=== PATIENT | female | born 1930 | race Two or more races ===

== ENCOUNTER 2017-11-13 17:32 | Emergency (ER) | payer MEDICARE, MEDICAID ==
[~2017-11-13] VITALS: Ht 154.9 cm; Wt 65.8 kg
[2017-11-13 18:51] LABS: Basophils # (auto) 0 uL; Basophils % (auto) 0.6 % (0.0-2.0); Eosinophils # (auto) 0.1 uL; Eosinophils % (auto) 1.6 % (0.0-7.0); Hematocrit 43.1 % (36.0-46.0); Hemoglobin 14.8 g/dL (12.2-16.2); Lymphocytes # (auto) 1.9 uL; Lymphocytes % (auto) 32.4 % (10.0-50.0); Mean Corpuscular Hemoglobin 33.2 pg (28.0-32.0); Mean Corpuscular Hgb Conc. 34.4 g/dL (32.0-36.0); Mean Corpuscular Volume 96.5 fL (80.0-100.0); Monocytes # (auto) 0.3 uL; Monocytes % (auto) 5.6 % (0.0-12.0); Neutrophils # (auto) 3.6 uL; Neutrophils % (auto) 59.8 % (37.0-80.0); Nucleated Red Blood Cells % 0.1 %; Platelet Count (auto) 206 10^3/uL (140-450); Red Blood Cells 4.47 10^6/uL (4.0-5.20); Red Cell Distribution Width 13.6 % (11.8-14.3)
[2017-11-13 19:03] LABS: INR 0.98 (0.9-1.15); Partial Thromboplastin Time 27.5 sec (22.64-33.71); Prothrombin Time 10.7 sec (9.37-12.3)
[2017-11-13 19:07] LABS: Chloride 106 mmol/L (98-107); Potassium 3.4 mmol/L (3.5-5.1); Sodium 140 mmol/L (136-145)
[2017-11-13 19:10] LABS: Alanine Aminotransferase 26 U/L (13-56); Albumin 3.1 g/dL (3.4-5.0); Anion Gap 11 (5-15); Aspartate Aminotransferase 28 U/L (15-37); BUN/Creatinine Ratio 13.5; Blood Urea Nitrogen 10 mg/dL (7-18); Calcium 8.4 mg/dL (8.5-10.1); Carbon Dioxide 23 mmol/L (21-32); GFR African American 96 mL/min; GFR Non-African American 79 mL/min; Glucose 199 mg/dL (74-106)
[2017-11-13 19:15] LABS: Alkaline Phosphatase 113 U/L (45-117); Bilirubin, Total 0.4 mg/dL (0.2-1.0); Total Protein 7.7 g/dL (6.4-8.2)
[2017-11-13 23:55] VITALS: BP 154/67
== END 2017-11-13 23:38 | disposition home or self-care (01) ==
LOC: ER 17:38
DX: I10 Essential (primary) hypertension (principal); E11.9 Type 2 diabetes mellitus without complications; Z90.49 Acquired absence of other specified parts of digestive tract; R41.82 Altered mental status, unspecified
CPT/HCPCS: 36415; 70450; 71045; 80053; 82962; 84484; 85025; 85610; 85730; 93005

== ENCOUNTER 2018-07-15 20:43 | Emergency (ER) | payer MEDICARE, MEDICAID ==
[~2018-07-15] VITALS: Ht 157.5 cm; Wt 83.9 kg
[2018-07-15] MEDS ORDERED: GLUCAGON HYDROCHLORIDE (RDNA) 1 MG VIAL ONE (21:11)
[2018-07-15] MEDS ORDERED: GLUCAGON HYDROCHLORIDE (RDNA) 1 MG VIAL IM ONE (22:45)
[2018-07-15 22:58] VITALS: BP 149/111
== END 2018-07-15 23:05 | disposition home or self-care (01) ==
LOC: ER 20:43
DX: T18.128A Food in esophagus causing other injury, initial encounter (principal); E11.9 Type 2 diabetes mellitus without complications; I10 Essential (primary) hypertension; F03.90 Unspecified dementia, unspecified severity, without behavioral disturbance, psychotic disturbance, mood disturbance, and anxiety; F41.9 Anxiety disorder, unspecified; F32.9 Major depressive disorder, single episode, unspecified; Z90.49 Acquired absence of other specified parts of digestive tract; W22.8XXA Striking against or struck by other objects, initial encounter; Y93.89 Activity, other specified; Y92.89 Other specified places as the place of occurrence of the external cause; Y99.8 Other external cause status
CPT/HCPCS: 70490; 71250; 96372; 99284; J1610

== ENCOUNTER 2021-06-04 12:38 | Inpatient (IN) | payer MEDICARE, MEDICAID ==
[~2021-06-04] VITALS: Ht 154.9 cm; Wt 62.4 kg
[2021-06-04] MEDS ORDERED: SODIUM CHLORIDE 0.9% 500 ML IV ONE (13:30)
[2021-06-04 14:47] LABS: Basophils # (auto) 0.1 10 ^3/uL (0-0.2); Basophils % (auto) 0.4 % (0.0-2.0); Eosinophils # (auto) 0 10 ^3/uL (0-0.8); Eosinophils % (auto) 0.2 % (0.0-7.0); Hematocrit 36.4 % (36.0-46.0); Hemoglobin 12.2 g/dL (12.2-16.2); Lymphocytes # (auto) 1.7 10 ^3/uL (0.4-5.4); Lymphocytes % (auto) 12.7 % (10.0-50.0); Mean Corpuscular Hemoglobin 31.6 pg (28.0-32.0); Mean Corpuscular Hgb Conc. 33.6 g/dL (32.0-36.0); Monocytes # (auto) 0.7 10 ^3/uL (0-1.3); Monocytes % (auto) 5.3 % (0.0-12.0); Neutrophils # (auto) 11.2 10 ^3/uL (1.6-8.6); Neutrophils % (auto) 81.4 % (37.0-80.0); Red Blood Cells 3.87 10^6/uL (4.0-5.20); Red Cell Distribution Width 13.3 % (11.8-14.3); White Blood Cell 13.7 10^3/uL (4.4-10.8)
[2021-06-04 15:03] LABS: INR 1.06 (0.9-1.15); Partial Thromboplastin Time 28.6 sec (23.6-33.0)
[2021-06-04 15:09] LABS: Albumin 2.9 g/dL (3.4-5.0); Calcium 8.8 mg/dL (8.5-10.1); Potassium 3.5 mmol/L (3.5-5.1)
[2021-06-04 15:15] LABS: BUN/Creatinine Ratio 32.7; Bilirubin, Total 0.4 mg/dL (0.2-1.0)
[2021-06-04] MEDS ORDERED: VANCOMYCIN 1GM/250ML 250 ML IV ONE (16:00)
[2021-06-04] MEDS ORDERED: amLODIPine BESYLATE 5 MG TAB PO ONE (18:00)
[2021-06-05] MEDS ORDERED: PIPERACILLIN-TAZOB 3.375GM 100 ML IV ONE (02:00)
[2021-06-05] MEDS ORDERED: CLINDAMYCIN 600MG IV 50 ML IV ONE (02:00)
[2021-06-05] MEDS ORDERED: IOHEXOL 350 MG/ML 100ML IJ ONE (09:09)
[2021-06-05] MEDS ORDERED: VANCOMYCIN PER PHARMACY 0 MG IV SCH (09:30)
[2021-06-05] MEDS ORDERED: MEROPENEM 1GM IVPB 100 ML IV ONE (09:30)
[2021-06-05] MEDS ORDERED: ONDANSETRON HCL 4 MG/2 ML VIAL IV ONE (09:45)
[2021-06-05] MEDS ORDERED: HYDROmorphone HCL 2 MG/ML VL IV ONE (09:45)
[2021-06-05] MEDS ORDERED: ONDANSETRON HCL 4 MG/2 ML VIAL IV PRN (10:30)
[2021-06-05] MEDS ORDERED: MORPHINE SULFATE INJECTION 2 MG/ML SYRG IV PRN (10:30)
[2021-06-05] MEDS ORDERED: SODIUM CHLORIDE 0.9% 1,000 ML IV SCH (10:30)
[2021-06-05] MEDS ORDERED: NITROGLYCERIN 0.4 MG SL TAB SL PRN (10:30)
[2021-06-05] MEDS: VANCOMYCIN 1GM/250ML 250 ML IV SCH (17:19)
[2021-06-05 22:00] VITALS: BP 156/59
[2021-06-05] MEDS: MEROPENEM 1GM IVPB 100 ML IV SCH (22:40)
[2021-06-05] MEDS: HYDROcodone-ACET 5/325MG TAB PO PRN (22:44)
[2021-06-06 05:00] VITALS: BP 156/70
[2021-06-06 06:26] LABS: Basophils # (auto) 0 10 ^3/uL (0-0.2); Basophils % (auto) 0.4 % (0.0-2.0); Eosinophils # (auto) 0 10 ^3/uL (0-0.8); Eosinophils % (auto) 0.2 % (0.0-7.0); Hematocrit 33.8 % (36.0-46.0); Hemoglobin 11.8 g/dL (12.2-16.2); Lymphocytes # (auto) 1.7 10 ^3/uL (0.4-5.4); Lymphocytes % (auto) 13.1 % (10.0-50.0); Mean Corpuscular Hemoglobin 32.5 pg (28.0-32.0); Mean Corpuscular Hgb Conc. 34.7 g/dL (32.0-36.0); Mean Corpuscular Volume 93.6 fL (80.0-100.0); Monocytes # (auto) 0.8 10 ^3/uL (0-1.3); Monocytes % (auto) 6.1 % (0.0-12.0); Neutrophils # (auto) 10.6 10 ^3/uL (1.6-8.6); Neutrophils % (auto) 80.2 % (37.0-80.0); Nucleated Red Blood Cells % 0.1 %; Red Blood Cells 3.62 10^6/uL (4.0-5.20); Red Cell Distribution Width 13.1 % (11.8-14.3); White Blood Cell 13.2 10^3/uL (4.4-10.8)
[2021-06-06 06:38] LABS: Albumin 2.6 g/dL (3.4-5.0); Calcium 8.5 mg/dL (8.5-10.1)
[2021-06-06 06:42] LABS: BUN/Creatinine Ratio 31.3; Bilirubin, Total 0.5 mg/dL (0.2-1.0); Total Protein 6.4 g/dL (6.4-8.2)
[2021-06-06] MEDS ORDERED: LORA0.5T20 PO (08:03)
[2021-06-06] MEDS ORDERED: MORI500C PO (08:03)
[2021-06-06] MEDS ORDERED: CHOL20009 PO (08:03)
[2021-06-06] MEDS ORDERED: OMEG1CAP68 PO (08:03)
[2021-06-06] MEDS ORDERED: FURO40TA4 PO (08:03)
[2021-06-06] MEDS ORDERED: BENA20TA14 PO (08:03)
[2021-06-06] MEDS ORDERED: ACET-1158 PO (08:03)
[2021-06-06] MEDS ORDERED: AMLO-489 PO (08:03)
[2021-06-06] MEDS ORDERED: GABA300C10 PO (08:03)
[2021-06-06] MEDS ORDERED: TEMA15CA PO (08:03)
[2021-06-06] MEDS ORDERED: FURO20TA3 PO (08:03)
[2021-06-06] MEDS ORDERED: SERT-376 PO (08:03)
[2021-06-06] MEDS ORDERED: ASPI-498 OR (08:03)
[2021-06-06] MEDS ORDERED: MULT1CAP27 PO (08:03)
[2021-06-06] MEDS ORDERED: ERYTPOW19 XX (08:03)
[2021-06-06] MEDS ORDERED: GLUC-163 PO (08:03)
[2021-06-06] MEDS ORDERED: POLYSOL7 OP (08:03)
[2021-06-06 09:00] VITALS: BP 154/66
[2021-06-06] MEDS: MEROPENEM 1GM IVPB 100 ML IV SCH ×2 (10:11→23:08)
[2021-06-06] MEDS: D5W/SOD CHLO 0.9% 1,000 ML IV SCH (10:45)
[2021-06-06] MEDS ORDERED: VANCOMYCIN 1GM/250ML 250 ML IV SCH ×2 (11:00→23:00)
[2021-06-06] MEDS: MORPHINE SULFATE 4 MG/ML SYR/VIAL IV PRN (11:02)
[2021-06-06 13:00] VITALS: BP 151/65
[2021-06-06] MEDS ORDERED: ceFAZolin 1GM VL ONE (13:41)
[2021-06-06] MEDS ORDERED: ROPIVACAINE 0.5% (5MG/ML) 20ML AMPULE IJ ONE (13:42)
[2021-06-06] MEDS ORDERED: MIDAZOLAM HCL 2MG/2ML 2ml VIAL (1mg/ml) ONE (13:48)
[2021-06-06] MEDS ORDERED: fentaNYL CITRATE 100 MCG/2 ML VL ONE (13:48)
[2021-06-06] MEDS ORDERED: ceFAZolin 1GM/50ML 100 ML IV ONE (13:51)
[2021-06-06] MEDS ORDERED: ONDANSETRON HCL 4 MG/2 ML VIAL ONE (13:57)
[2021-06-06] MEDS ORDERED: LIDOCAINE 2% (LOCAL ANESTH.) PF 5ml SDV ONE (13:57)
[2021-06-06] MEDS ORDERED: NEOMYCIN-BACITRACIN-POLYM 15GM TOP OINT TOP ONE (14:32)
[2021-06-06] MEDS ORDERED: PROPOFOL 10 MG/ML 20 ML IV ONE (14:35)
[2021-06-06] MEDS ORDERED: ONDANSETRON HCL 4 MG/2 ML VIAL IV PRN (14:45)
[2021-06-06] MEDS ORDERED: HYDROmorphone HCL 2 MG/ML VL IV PRN (14:45)
[2021-06-06] MEDS: POTASSIUM CHL 20MEQ/100ML 100 ML IV SCH ×2 (16:05→19:40)
[2021-06-06 16:57] VITALS: BP 154/74
[2021-06-06] MEDS: VANCOMYCIN 1GM/250ML 250 ML IV SCH ×2 (17:00→18:04)
[2021-06-06] MEDS ORDERED: POTASSIUM CHL 20MEQ/100ML 100 ML IV SCH (19:45)
[2021-06-06] MEDS: HYDROcodone-ACET 5/325MG TAB PO PRN (19:57)
[2021-06-06] MEDS ORDERED: MEROPENEM 1GM IVPB 100 ML IV SCH (22:00)
[2021-06-06 22:28] VITALS: BP 157/65
[2021-06-07] MEDS: VANCOMYCIN 1GM/250ML 250 ML IV SCH (01:50)
[2021-06-07 05:37] VITALS: BP 153/68
[2021-06-07 06:35] LABS: Basophils # (auto) 0 10 ^3/uL (0-0.2); Basophils % (auto) 0.3 % (0.0-2.0); Eosinophils # (auto) 0 10 ^3/uL (0-0.8); Eosinophils % (auto) 0.1 % (0.0-7.0); Hematocrit 33.7 % (36.0-46.0); Hemoglobin 11.7 g/dL (12.2-16.2); Lymphocytes # (auto) 2.1 10 ^3/uL (0.4-5.4); Lymphocytes % (auto) 18.8 % (10.0-50.0); Mean Corpuscular Hemoglobin 32.2 pg (28.0-32.0); Mean Corpuscular Hgb Conc. 34.8 g/dL (32.0-36.0); Mean Corpuscular Volume 92.5 fL (80.0-100.0); Monocytes # (auto) 0.9 10 ^3/uL (0-1.3); Monocytes % (auto) 7.9 % (0.0-12.0); Neutrophils # (auto) 8.2 10 ^3/uL (1.6-8.6); Neutrophils % (auto) 72.9 % (37.0-80.0); Nucleated Red Blood Cells % 0.1 %; Red Blood Cells 3.64 10^6/uL (4.0-5.20); Red Cell Distribution Width 13.3 % (11.8-14.3); White Blood Cell 11.3 10^3/uL (4.4-10.8)
[2021-06-07 06:49] LABS: Calcium 8.1 mg/dL (8.5-10.1)
[2021-06-07 09:00] VITALS: BP 154/69
[2021-06-07] MEDS: D5W/SOD CHLO 0.9% 1,000 ML IV SCH ×2 (10:45→14:09)
[2021-06-07] MEDS: MEROPENEM 1GM IVPB 100 ML IV SCH ×2 (10:49→23:08)
[2021-06-07 12:38] VITALS: BP 151/69
[2021-06-07 17:04] VITALS: BP 155/75
[2021-06-07] MEDS: MORPHINE SULFATE 4 MG/ML SYR/VIAL IV PRN ×2 (17:05→22:29)
[2021-06-07] MEDS: hydrALAZINE HCL 20 MG/ML VL IV PRN (18:28)
[2021-06-07] MEDS: HYDROcodone-ACET 5/325MG TAB PO PRN (19:57)
[2021-06-07 22:00] VITALS: BP 149/60
[2021-06-08] MEDS: VANCOMYCIN 1GM/250ML 250 ML IV SCH (02:20)
[2021-06-08] MEDS: MORPHINE SULFATE 4 MG/ML SYR/VIAL IV PRN ×4 (02:21→21:50)
[2021-06-08 05:00] VITALS: BP 170/67
[2021-06-08 05:56] LABS: Basophils # (auto) 0 10 ^3/uL (0-0.2); Basophils % (auto) 0.2 % (0.0-2.0); Eosinophils # (auto) 0 10 ^3/uL (0-0.8); Eosinophils % (auto) 0.1 % (0.0-7.0); Hematocrit 34.6 % (36.0-46.0); Hemoglobin 11.7 g/dL (12.2-16.2); Lymphocytes # (auto) 1.6 10 ^3/uL (0.4-5.4); Lymphocytes % (auto) 12.9 % (10.0-50.0); Mean Corpuscular Hemoglobin 31.6 pg (28.0-32.0); Mean Corpuscular Hgb Conc. 33.7 g/dL (32.0-36.0); Mean Corpuscular Volume 93.8 fL (80.0-100.0); Monocytes # (auto) 0.9 10 ^3/uL (0-1.3); Monocytes % (auto) 7.4 % (0.0-12.0); Neutrophils # (auto) 9.9 10 ^3/uL (1.6-8.6); Neutrophils % (auto) 79.4 % (37.0-80.0); Nucleated Red Blood Cells % 0.1 %; Red Blood Cells 3.69 10^6/uL (4.0-5.20); Red Cell Distribution Width 13.2 % (11.8-14.3); White Blood Cell 12.5 10^3/uL (4.4-10.8)
[2021-06-08 06:10] LABS: BUN/Creatinine Ratio 33.3; Calcium 8.2 mg/dL (8.5-10.1)
[2021-06-08] MEDS: hydrALAZINE HCL 20 MG/ML VL IV PRN ×2 (06:34→16:53)
[2021-06-08 06:44] LABS: Potassium 2.7 mmol/L (3.5-5.1)
[2021-06-08 08:45] VITALS: BP 136/58
[2021-06-08] MEDS ORDERED: POTASSIUM EFFERVESENT TAB 25 MEQ PO SCH (10:00)
[2021-06-08] MEDS: MEROPENEM 1GM IVPB 100 ML IV SCH ×2 (10:03→23:43)
[2021-06-08] MEDS ORDERED: POTASSIUM CHLORIDE 60 MEQ, LIDOCAINE 1% (LOCAL ANESTH.) 6 ML in SODIUM CHL 0.9% 500 ML IV ONE (11:45)
[2021-06-08] MEDS: D5W/SOD CHLO 0.9% 1,000 ML IV SCH (12:40)
[2021-06-08 13:16] VITALS: BP 127/60
[2021-06-08 17:00] VITALS: BP 167/66
[2021-06-08] MEDS ORDERED: VANCOMYCIN 1GM/250ML 250 ML IV SCH (20:00)
[2021-06-08 22:00] VITALS: BP 125/59
[2021-06-09] MEDS: MORPHINE SULFATE 4 MG/ML SYR/VIAL IV PRN ×2 (01:42→21:59)
[2021-06-09 05:00] VITALS: BP 140/66
[2021-06-09 05:30] LABS: Basophils # (auto) 0 10 ^3/uL (0-0.2); Basophils % (auto) 0.3 % (0.0-2.0); Eosinophils # (auto) 0 10 ^3/uL (0-0.8); Eosinophils % (auto) 0.2 % (0.0-7.0); Hematocrit 31.7 % (36.0-46.0); Hemoglobin 11.1 g/dL (12.2-16.2); Lymphocytes # (auto) 1.5 10 ^3/uL (0.4-5.4); Mean Corpuscular Hemoglobin 32.2 pg (28.0-32.0); Mean Corpuscular Hgb Conc. 35.1 g/dL (32.0-36.0); Mean Corpuscular Volume 91.8 fL (80.0-100.0); Monocytes # (auto) 0.8 10 ^3/uL (0-1.3); Monocytes % (auto) 7.9 % (0.0-12.0); Neutrophils # (auto) 8.3 10 ^3/uL (1.6-8.6); Neutrophils % (auto) 77.6 % (37.0-80.0); Red Blood Cells 3.46 10^6/uL (4.0-5.20); Red Cell Distribution Width 13.3 % (11.8-14.3); White Blood Cell 10.7 10^3/uL (4.4-10.8)
[2021-06-09 05:51] LABS: Potassium 3.3 mmol/L (3.5-5.1)
[2021-06-09 09:00] VITALS: BP 165/73
[2021-06-09] MEDS: MEROPENEM 1GM IVPB 100 ML IV SCH (10:09)
[2021-06-09] MEDS: hydrALAZINE HCL 20 MG/ML VL IV PRN (10:09)
[2021-06-09] MEDS ORDERED: POTASSIUM CHLORIDE 40 MEQ, LIDOCAINE 1% (LOCAL ANESTH.) 4 ML in SODIUM CHL 0.9% 250 ML IV ONE (10:45)
[2021-06-09] MEDS: D5W/SOD CHLO 0.9% 1,000 ML IV SCH (10:45)
[2021-06-09] MEDS ORDERED: CEFTRIAXONE SODIUM 2 GM in D5W 5% 50 ML IV ONE (12:30)
[2021-06-09 13:00] VITALS: BP 134/65
[2021-06-09] MEDS ORDERED: cefTRIAXone 1GM/50ML D5W 50 ML IV ONE (13:00)
[2021-06-09] MEDS ORDERED: ANGIOMAX 250 MG VIAL IV ONE (13:08)
[2021-06-09] MEDS ORDERED: SODIUM CHL 0.9% 50 ML ONE (13:08)
[2021-06-09] MEDS ORDERED: LIDOCAINE 2%HCL (LOCAL ANESTH.) INJ 20ML MDV ONE (13:08)
[2021-06-09] MEDS ORDERED: MIDAZOLAM HCL 2MG/2ML 2ml VIAL (1mg/ml) ONE (13:08)
[2021-06-09] MEDS ORDERED: fentaNYL CITRATE 100 MCG/2 ML VL ONE (13:08)
[2021-06-09] MEDS ORDERED: CLOPIDOGREL 300 MG TAB ONE (15:50)
[2021-06-09 17:00] VITALS: BP 137/58
[2021-06-09 22:00] VITALS: BP 139/74
[2021-06-10 06:05] VITALS: BP 130/70
[2021-06-10 06:12] LABS: Basophils # (auto) 0 10 ^3/uL (0-0.2); Basophils % (auto) 0.3 % (0.0-2.0); Eosinophils # (auto) 0 10 ^3/uL (0-0.8); Eosinophils % (auto) 0.4 % (0.0-7.0); Hematocrit 29.6 % (36.0-46.0); Hemoglobin 10.4 g/dL (12.2-16.2); Lymphocytes # (auto) 1.4 10 ^3/uL (0.4-5.4); Mean Corpuscular Hemoglobin 32.5 pg (28.0-32.0); Mean Corpuscular Hgb Conc. 35.2 g/dL (32.0-36.0); Mean Corpuscular Volume 92.3 fL (80.0-100.0); Monocytes # (auto) 0.7 10 ^3/uL (0-1.3); Monocytes % (auto) 6.9 % (0.0-12.0); Neutrophils # (auto) 7.4 10 ^3/uL (1.6-8.6); Neutrophils % (auto) 77.4 % (37.0-80.0); Red Blood Cells 3.21 10^6/uL (4.0-5.20); Red Cell Distribution Width 13.2 % (11.8-14.3); White Blood Cell 9.6 10^3/uL (4.4-10.8)
[2021-06-10 06:26] LABS: Calcium 7.9 mg/dL (8.5-10.1); Potassium 3.4 mmol/L (3.5-5.1)
[2021-06-10 09:00] VITALS: BP 153/62
[2021-06-10] MEDS: CLOPIDOGREL BISULFATE 75 MG TAB PO SCH (09:14)
[2021-06-10] MEDS: ASPirin-EC 81 mg tab PO SCH (09:15)
[2021-06-10] MEDS: cefTRIAXone 1GM/50ML D5W 50 ML IV SCH (09:15)
[2021-06-10] MEDS ORDERED: CEFTRIAXONE SODIUM 2 GM in D5W 5% 50 ML IV SCH (10:00)
[2021-06-10] MEDS: D5W/SOD CHLO 0.9% 1,000 ML IV SCH (10:45)
[2021-06-10] MEDS: hydrALAZINE HCL 20 MG/ML VL IV PRN ×2 (11:11→16:21)
[2021-06-10] MEDS: MORPHINE SULFATE 4 MG/ML SYR/VIAL IV PRN ×2 (11:13→21:40)
[2021-06-10] MEDS: BACITRACIN TOP OINT 1 UD PKG TOP SCH (12:00)
[2021-06-10 13:00] VITALS: BP 130/64
[2021-06-10 17:00] VITALS: BP 154/69
[2021-06-10 22:00] VITALS: BP 145/58
[2021-06-11 05:00] VITALS: BP 153/75
[2021-06-11 05:59] LABS: Basophils # (auto) 0 10 ^3/uL (0-0.2); Basophils % (auto) 0.3 % (0.0-2.0); Eosinophils # (auto) 0.1 10 ^3/uL (0-0.8); Eosinophils % (auto) 0.6 % (0.0-7.0); Hematocrit 31.8 % (36.0-46.0); Hemoglobin 10.9 g/dL (12.2-16.2); Lymphocytes # (auto) 1.5 10 ^3/uL (0.4-5.4); Lymphocytes % (auto) 14.4 % (10.0-50.0); Mean Corpuscular Hemoglobin 31.9 pg (28.0-32.0); Mean Corpuscular Hgb Conc. 34.4 g/dL (32.0-36.0); Mean Corpuscular Volume 92.9 fL (80.0-100.0); Monocytes # (auto) 0.6 10 ^3/uL (0-1.3); Monocytes % (auto) 6.1 % (0.0-12.0); Neutrophils % (auto) 78.6 % (37.0-80.0); Red Blood Cells 3.42 10^6/uL (4.0-5.20); Red Cell Distribution Width 13.5 % (11.8-14.3); White Blood Cell 10.1 10^3/uL (4.4-10.8)
[2021-06-11] MEDS: D5W/SOD CHLO 0.9% 1,000 ML IV SCH ×2 (06:09→14:11)
[2021-06-11 06:35] LABS: Calcium 7.8 mg/dL (8.5-10.1)
[2021-06-11 09:00] VITALS: BP 160/75
[2021-06-11] MEDS: BACITRACIN TOP OINT 1 UD PKG TOP SCH (12:20)
[2021-06-11 13:00] VITALS: BP 161/70
[2021-06-11] MEDS: CLOPIDOGREL BISULFATE 75 MG TAB PO SCH (14:10)
[2021-06-11] MEDS: ASPirin-EC 81 mg tab PO SCH (14:10)
[2021-06-11] MEDS: cefTRIAXone 1GM/50ML D5W 50 ML IV SCH (14:11)
[2021-06-11] MEDS: hydrALAZINE HCL 20 MG/ML VL IV PRN (14:24)
[2021-06-11 17:00] VITALS: BP 108/53
[2021-06-11] MEDS: HYDROcodone-ACET 5/325MG TAB PO PRN ×2 (17:10→21:22)
[2021-06-11] MEDS: MORPHINE SULFATE 4 MG/ML SYR/VIAL IV PRN (19:56)
[2021-06-11] MEDS: POTASSIUM CHL 20MEQ/100ML 100 ML IV SCH (21:22)
[2021-06-11] MEDS: D5W/SOD CHL 0.9%/KCL 40MEQ 1,000 ML IV SCH (21:22)
[2021-06-11 22:00] VITALS: BP 125/55
[2021-06-12] MEDS: POTASSIUM CHL 20MEQ/100ML 100 ML IV SCH (02:39)
[2021-06-12 05:00] VITALS: BP 154/71
[2021-06-12] MEDS: HYDROcodone-ACET 5/325MG TAB PO PRN (07:00)
[2021-06-12 07:12] LABS: Basophils # (auto) 0 10 ^3/uL (0-0.2); Basophils % (auto) 0.3 % (0.0-2.0); Eosinophils # (auto) 0.1 10 ^3/uL (0-0.8); Eosinophils % (auto) 1.1 % (0.0-7.0); Hematocrit 32.9 % (36.0-46.0); Hemoglobin 11.1 g/dL (12.2-16.2); Lymphocytes # (auto) 1.6 10 ^3/uL (0.4-5.4); Lymphocytes % (auto) 16.1 % (10.0-50.0); Mean Corpuscular Hemoglobin 32.4 pg (28.0-32.0); Mean Corpuscular Hgb Conc. 33.6 g/dL (32.0-36.0); Mean Corpuscular Volume 96.4 fL (80.0-100.0); Monocytes # (auto) 0.7 10 ^3/uL (0-1.3); Monocytes % (auto) 6.6 % (0.0-12.0); Neutrophils # (auto) 7.6 10 ^3/uL (1.6-8.6); Neutrophils % (auto) 75.9 % (37.0-80.0); Red Blood Cells 3.42 10^6/uL (4.0-5.20); Red Cell Distribution Width 13.7 % (11.8-14.3); White Blood Cell 10.1 10^3/uL (4.4-10.8)
[2021-06-12 07:21] LABS: BUN/Creatinine Ratio 43.5; Calcium 8.3 mg/dL (8.5-10.1); Magnesium 2.8 mg/dL (1.6-2.6); Phosphorus 2.6 mg/dL (2.5-4.90)
[2021-06-12 07:30] VITALS: BP 150/79
[2021-06-12] MEDS: CLOPIDOGREL BISULFATE 75 MG TAB PO SCH (10:00)
[2021-06-12] MEDS: ASPirin-EC 81 mg tab PO SCH (10:00)
[2021-06-12] MEDS: cefTRIAXone 1GM/50ML D5W 50 ML IV SCH (10:00)
[2021-06-12] MEDS: BACITRACIN TOP OINT 1 UD PKG TOP SCH (10:01)
[2021-06-12 12:00] VITALS: BP 146/66
[2021-06-12 16:30] VITALS: BP 149/70
[2021-06-12] MEDS: LACTULOSE 20Gm/30ML SOLN PO SCH ×2 (18:04→19:58)
[2021-06-12] MEDS: D5W/SOD CHL 0.9%/KCL 40MEQ 1,000 ML IV SCH (18:11)
[2021-06-12] MEDS: MORPHINE SULFATE 4 MG/ML SYR/VIAL IV PRN (20:02)
[2021-06-12 22:00] VITALS: BP 160/78
[2021-06-13] MEDS: hydrALAZINE HCL 20 MG/ML VL IV PRN ×2 (00:20→09:20)
[2021-06-13] MEDS: HYDROcodone-ACET 5/325MG TAB PO PRN (00:20)
[2021-06-13 01:10] VITALS: BP 111/54
[2021-06-13 05:00] VITALS: BP 151/64
[2021-06-13] MEDS: MORPHINE SULFATE 4 MG/ML SYR/VIAL IV PRN ×2 (05:26→14:13)
[2021-06-13 06:47] LABS: Basophils # (auto) 0 10 ^3/uL (0-0.2); Basophils % (auto) 0.4 % (0.0-2.0); Eosinophils # (auto) 0.1 10 ^3/uL (0-0.8); Eosinophils % (auto) 0.5 % (0.0-7.0); Hematocrit 31.3 % (36.0-46.0); Hemoglobin 10.8 g/dL (12.2-16.2); Lymphocytes # (auto) 1.2 10 ^3/uL (0.4-5.4); Lymphocytes % (auto) 11.2 % (10.0-50.0); Mean Corpuscular Hgb Conc. 34.5 g/dL (32.0-36.0); Mean Corpuscular Volume 92.8 fL (80.0-100.0); Monocytes # (auto) 0.6 10 ^3/uL (0-1.3); Monocytes % (auto) 5.9 % (0.0-12.0); Neutrophils # (auto) 9.1 10 ^3/uL (1.6-8.6); Red Blood Cells 3.38 10^6/uL (4.0-5.20); Red Cell Distribution Width 13.8 % (11.8-14.3); White Blood Cell 11.1 10^3/uL (4.4-10.8)
[2021-06-13 07:36] LABS: Potassium 3.7 mmol/L (3.5-5.1)
[2021-06-13 07:45] LABS: Calcium 7.9 mg/dL (8.5-10.1)
[2021-06-13 09:00] VITALS: BP 159/69
[2021-06-13] MEDS: cefTRIAXone 1GM/50ML D5W 50 ML IV SCH (09:18)
[2021-06-13] MEDS: LACTULOSE 20Gm/30ML SOLN PO SCH (09:18)
[2021-06-13] MEDS: ASPirin-EC 81 mg tab PO SCH (09:19)
[2021-06-13] MEDS: CLOPIDOGREL BISULFATE 75 MG TAB PO SCH (09:19)
[2021-06-13] MEDS: BACITRACIN TOP OINT 1 UD PKG TOP SCH (09:19)
[2021-06-13 13:00] VITALS: BP 126/55
[2021-06-13 17:00] VITALS: BP 133/66
[2021-06-13 22:26] VITALS: BP 140/72
[2021-06-14] MEDS: LACTULOSE 20Gm/30ML SOLN PO SCH ×3 (00:09→21:23)
[2021-06-14 05:11] LABS: Basophils # (auto) 0.1 10 ^3/uL (0-0.2); Basophils % (auto) 0.5 % (0.0-2.0); Eosinophils # (auto) 0.1 10 ^3/uL (0-0.8); Eosinophils % (auto) 0.6 % (0.0-7.0); Hematocrit 33.7 % (36.0-46.0); Hemoglobin 11.5 g/dL (12.2-16.2); Lymphocytes # (auto) 1.1 10 ^3/uL (0.4-5.4); Lymphocytes % (auto) 9.5 % (10.0-50.0); Mean Corpuscular Hemoglobin 31.9 pg (28.0-32.0); Mean Corpuscular Hgb Conc. 34.1 g/dL (32.0-36.0); Mean Corpuscular Volume 93.6 fL (80.0-100.0); Monocytes # (auto) 0.6 10 ^3/uL (0-1.3); Monocytes % (auto) 4.9 % (0.0-12.0); Neutrophils # (auto) 9.5 10 ^3/uL (1.6-8.6); Neutrophils % (auto) 84.5 % (37.0-80.0); Nucleated Red Blood Cells % 0.1 %; Red Cell Distribution Width 14.1 % (11.8-14.3); White Blood Cell 11.2 10^3/uL (4.4-10.8)
[2021-06-14 05:17] VITALS: BP 135/62
[2021-06-14 09:00] VITALS: BP 152/74
[2021-06-14] MEDS: cefTRIAXone 1GM/50ML D5W 50 ML IV SCH (10:08)
[2021-06-14] MEDS: ASPirin-EC 81 mg tab PO SCH (10:09)
[2021-06-14] MEDS: CLOPIDOGREL BISULFATE 75 MG TAB PO SCH (10:10)
[2021-06-14] MEDS: BACITRACIN TOP OINT 1 UD PKG TOP SCH (10:12)
[2021-06-14 13:00] VITALS: BP 161/78
[2021-06-14] MEDS: hydrALAZINE HCL 20 MG/ML VL IV PRN (14:37)
[2021-06-14 17:00] VITALS: BP 148/73
[2021-06-14] MEDS: HYDROcodone-ACET 5/325MG TAB PO PRN (20:52)
[2021-06-14 22:00] VITALS: BP 118/56
[2021-06-15 05:00] VITALS: BP 175/81
[2021-06-15] MEDS: hydrALAZINE HCL 20 MG/ML VL IV PRN ×2 (05:20→17:00)
[2021-06-15 05:56] LABS: Basophils # (auto) 0 10 ^3/uL (0-0.2); Basophils % (auto) 0.4 % (0.0-2.0); Eosinophils # (auto) 0 10 ^3/uL (0-0.8); Eosinophils % (auto) 0.4 % (0.0-7.0); Hematocrit 31.6 % (36.0-46.0); Hemoglobin 10.9 g/dL (12.2-16.2); Lymphocytes # (auto) 1.1 10 ^3/uL (0.4-5.4); Mean Corpuscular Hemoglobin 31.8 pg (28.0-32.0); Mean Corpuscular Hgb Conc. 34.3 g/dL (32.0-36.0); Mean Corpuscular Volume 92.7 fL (80.0-100.0); Monocytes # (auto) 0.5 10 ^3/uL (0-1.3); Monocytes % (auto) 5.6 % (0.0-12.0); Neutrophils # (auto) 7.7 10 ^3/uL (1.6-8.6); Neutrophils % (auto) 81.6 % (37.0-80.0); Nucleated Red Blood Cells % 0.1 %; Red Blood Cells 3.41 10^6/uL (4.0-5.20); Red Cell Distribution Width 13.6 % (11.8-14.3); White Blood Cell 9.4 10^3/uL (4.4-10.8)
[2021-06-15] MEDS: cefTRIAXone 1GM/50ML D5W 50 ML IV SCH (08:34)
[2021-06-15 09:00] VITALS: BP 161/71
[2021-06-15] MEDS: BACITRACIN TOP OINT 1 UD PKG TOP SCH (10:21)
[2021-06-15] MEDS: CLOPIDOGREL BISULFATE 75 MG TAB PO SCH (10:21)
[2021-06-15] MEDS: LACTULOSE 20Gm/30ML SOLN PO SCH ×2 (10:21→21:31)
[2021-06-15] MEDS: ASPirin-EC 81 mg tab PO SCH (10:21)
[2021-06-15 13:00] VITALS: BP 152/71
[2021-06-15 17:00] VITALS: BP 162/74
[2021-06-15 22:00] VITALS: BP 139/67
[2021-06-15] MEDS: MORPHINE SULFATE 4 MG/ML SYR/VIAL IV PRN (23:15)
[2021-06-16 05:00] VITALS: BP 156/81
[2021-06-16] MEDS: hydrALAZINE HCL 20 MG/ML VL IV PRN ×2 (05:57→12:59)
[2021-06-16 06:28] LABS: Basophils # (auto) 0.1 10 ^3/uL (0-0.2); Basophils % (auto) 0.5 % (0.0-2.0); Eosinophils # (auto) 0.1 10 ^3/uL (0-0.8); Eosinophils % (auto) 0.5 % (0.0-7.0); Hemoglobin 12.3 g/dL (12.2-16.2); Lymphocytes # (auto) 1.7 10 ^3/uL (0.4-5.4); Mean Corpuscular Hemoglobin 31.7 pg (28.0-32.0); Mean Corpuscular Hgb Conc. 33.1 g/dL (32.0-36.0); Mean Corpuscular Volume 95.8 fL (80.0-100.0); Monocytes # (auto) 0.8 10 ^3/uL (0-1.3); Monocytes % (auto) 7.4 % (0.0-12.0); Neutrophils % (auto) 75.6 % (37.0-80.0); Nucleated Red Blood Cells % 0.1 %; Red Blood Cells 3.86 10^6/uL (4.0-5.20); Red Cell Distribution Width 14.4 % (11.8-14.3); White Blood Cell 10.5 10^3/uL (4.4-10.8)
[2021-06-16 08:41] VITALS: BP 144/58
[2021-06-16] MEDS: ASPirin-EC 81 mg tab PO SCH (10:20)
[2021-06-16] MEDS: cefTRIAXone 1GM/50ML D5W 50 ML IV SCH (10:20)
[2021-06-16] MEDS: LACTULOSE 20Gm/30ML SOLN PO SCH (10:20)
[2021-06-16] MEDS: CLOPIDOGREL BISULFATE 75 MG TAB PO SCH (10:21)
[2021-06-16] MEDS: BACITRACIN TOP OINT 1 UD PKG TOP SCH (10:21)
[2021-06-16 12:56] VITALS: BP 165/60
[2021-06-16 13:31] VITALS: BP 140/68
[2021-06-16 15:15] VITALS: BP 140/68
== END 2021-06-16 16:00 | disposition hospice, home (50) | DRG 853 ==
LOC: ER 12:38 → TELE 06-05 10:20 → TELE-CENTR 06-05 20:32
PROVIDERS: ADMIT Internal Medicine Nephrology; ATTEND Internal Medicine
PROC: 0Y6P0Z0 Detachment at Right 1st Toe, Complete, Open Approach (ICD-10-PCS; 2021-06-06)
PROC: 0Y6Y0Z0 Detachment at Left 5th Toe, Complete, Open Approach (ICD-10-PCS; 2021-06-06)
PROC: 0Y6W0Z0 Detachment at Left 4th Toe, Complete, Open Approach (ICD-10-PCS; 2021-06-06)
PROC: 0Y6U0Z0 Detachment at Left 3rd Toe, Complete, Open Approach (ICD-10-PCS; 2021-06-06)
PROC: 0Y6S0Z0 Detachment at Left 2nd Toe, Complete, Open Approach (ICD-10-PCS; 2021-06-06)
PROC: 04CN3ZZ Extirpation of Matter from Left Popliteal Artery, Percutaneous Approach (ICD-10-PCS; principal; 2021-06-09)
PROC: 04CU3ZZ Extirpation of Matter from Left Peroneal Artery, Percutaneous Approach (ICD-10-PCS; 2021-06-09)
PROC: 047L3Z1 Dilation of Left Femoral Artery using Drug-Coated Balloon, Percutaneous Approach (ICD-10-PCS; 2021-06-09)
PROC: 047N3Z1 Dilation of Left Popliteal Artery using Drug-Coated Balloon, Percutaneous Approach (ICD-10-PCS; 2021-06-09)
PROC: 047U3ZZ Dilation of Left Peroneal Artery, Percutaneous Approach (ICD-10-PCS; 2021-06-09)
PROC: B41GYZZ Fluoroscopy of Left Lower Extremity Arteries using Other Contrast (ICD-10-PCS; 2021-06-09)
PROC: B41FYZZ Fluoroscopy of Right Lower Extremity Arteries using Other Contrast (ICD-10-PCS; 2021-06-09)
DX: A41.9 Sepsis, unspecified organism (principal); A48.0 Gas gangrene; M86.9 Osteomyelitis, unspecified; E11.52 Type 2 diabetes mellitus with diabetic peripheral angiopathy with gangrene; M87.9 Osteonecrosis, unspecified; I10 Essential (primary) hypertension; F41.9 Anxiety disorder, unspecified; F32.A Depression, unspecified; Z20.822 Contact with and (suspected) exposure to COVID-19; E87.6 Hypokalemia; E11.69 Type 2 diabetes mellitus with other specified complication; F03.90 Unspecified dementia, unspecified severity, without behavioral disturbance, psychotic disturbance, mood disturbance, and anxiety; Z82.49 Family history of ischemic heart disease and other diseases of the circulatory system; Z83.3 Family history of diabetes mellitus
CPT/HCPCS: 36415; 71045; 73700; 73706; 73718; 80048; 80053; 80202; 82962; 83735; 84100; 85025; 85610; 85652; 85730; 86850; 86900; 86901; 87040; 87070; 87075; 87077; 87186; 87205; 87426; 92610; 93005; 93925; 96365; 96366; 96367; 96368; 96375; 97163; 99152; 99153; C2623; G0378; J0690; J0696; J2001; J2185; J2250; J2405; J2543; J2704; J3480; J3490; J7042; J7060